=== PATIENT | male | born 1955 | race Caucasian/White ===

== ENCOUNTER 2020-12-03 16:57 | Observation (INO) | payer BC ==
[2020-12-03 17:09] VITALS: BMI 26.2
[2020-12-03] MEDS ORDERED: ATORVASTATIN CA 80 MG TABLET (FP) PO ONE (17:47)
[2020-12-03] MEDS ORDERED: ASPIRIN 81 MG CHEWABLE TABLETS PO ONE (17:47)
[2020-12-03] MEDS ORDERED: ATORVASTATIN CA 80 MG TABLET (FP) ONE ×2 (17:52→18:11)
[2020-12-03] MEDS ORDERED: ASPIRIN 81 MG CHEWABLE TABLETS ONE ×2 (17:52→18:11)
[2020-12-03] MEDS ORDERED: LORazepam 2 MG/ML SDV VIAL ONE (17:55)
[2020-12-03] MEDS ORDERED: ONDANSETRON 4 MG/2 ML VIAL IVPUSH ONE (17:56)
[2020-12-03] MEDS ORDERED: ONDANSETRON 4 MG/2 ML VIAL ONE (17:56)
[2020-12-03] MEDS ORDERED: LORazepam 2 MG/ML SDV VIAL IVPUSH ONE (18:00)
[2020-12-03] MEDS ORDERED: MECLIZINE HCL 25 MG TABLET (FP) ONE (18:01)
[2020-12-03] MEDS ORDERED: MECLIZINE HCL 25 MG TABLET (FP) PO ONE (18:02)
[2020-12-03 18:35] LABS: BASO % 0.5 % (0-2.0); EOS % 4.2 % (0-4.5); HEMATOCRIT 36.5 % (35.4-49); HEMOGLOBIN 11.9 GM/dL (11.7-16.9); LYMPH % 60.3 % (8-40); MCH 29.2 pg (25.7-33.7); MCHC 32.6 g/dl (32.0-35.9); MEAN CELL VOLUME 89.6 fl (80-96); MEAN PLT VOLUME 8.8 fl (7.5-11.1); MONO % 14.6 % (3.8-10.2); NEUT % 20.4 % (42.8-82.8); PLATELET COUNT 204 10^3/uL (134-434); RBC 4.08 M/mm3 (4.00-5.60); RDW 13.6 % (11.9-15.9); WHITE BLOOD COUNT 5.4 K/mm3 (4.0-10.0)
[2020-12-03 18:49] LABS: INR 0.88 (0.83-1.09); PROTHROMBIN TIME (PATIENT) 10.7 SEC (9.7-13.0)
[2020-12-03 18:51] LABS: ACTIVATED PTT 25.2 SECONDS (25.2-36.5)
[2020-12-03 18:55] LABS: CHLORIDE 104 mmol/L (98-107); SODIUM 140 mmol/L (136-145)
[2020-12-03 18:57] LABS: CALCIUM 8.2 mg/dL (8.5-10.1)
[2020-12-03 18:58] LABS: ALBUMIN 3.7 g/dl (3.4-5.0); ANION GAP 11 MMOL/L (8-16); BLOOD UREA NITROGEN 21.1 mg/dL (7-18); CO2 25 mmol/L (21-32); GLUCOSE,RANDOM 134 mg/dL (74-106)
[2020-12-03 19:00] LABS: CHOLESTEROL 181 mg/dL (50-200); TRIGLYCERIDES 82 mg/dL (0-150)
[2020-12-03 19:01] LABS: LDL CHOLESTEROL (ONLY SJRH) 93 mg/dL (5-100); SGOT/AST 24 U/L (15-37); SGPT/ALT 23 U/L (13-61)
[2020-12-03 19:03] LABS: BILIRUBIN,TOTAL 0.5 mg/dL (0.2-1); HDL CHOLESTEROL 70 mg/dL (40-60); TOT PROT 7.6 g/dl (6.4-8.2)
[2020-12-03 19:04] LABS: ALK PHOS 71 U/L (45-117)
[2020-12-03 19:51] LABS: ERYTHROCYTE SEDIMENTATION RATE 10 mm/hr (0-20)
[2020-12-03 20:03] LABS: ANISOCYTOSIS 0; MACROCYTOSIS 0; PLATELET ESTIMATE NORMAL
[2020-12-04 06:01] LABS: HEMATOCRIT 37.8 % (35.4-49); HEMOGLOBIN 12.4 GM/dL (11.7-16.9); MCH 29.9 pg (25.7-33.7); MCHC 32.8 g/dl (32.0-35.9); MEAN CELL VOLUME 90.9 fl (80-96); MEAN PLT VOLUME 8.7 fl (7.5-11.1); PLATELET COUNT 189 10^3/uL (134-434); RBC 4.16 M/mm3 (4.00-5.60); RDW 13.6 % (11.9-15.9); WHITE BLOOD COUNT 7.3 K/mm3 (4.0-10.0)
[2020-12-04 06:21] LABS: MAGNESIUM 2.3 mg/dL (1.8-2.4)
[2020-12-04 06:24] LABS: PHOSPHOROUS 3.5 mg/dL (2.5-4.9)
[2020-12-04 09:33] LABS: PH,URINE 6.5 (5.0-8.0); URINE APPEARANCE CLEAR; URINE BILIRUBIN NEGATIVE (NEGATIVE); URINE COLOR YELLOW; URINE GLUCOSE (UA) NEGATIVE (NEGATIVE); URINE KETONE NEGATIVE (NEGATIVE); URINE LEUK ESTERASE NEGATIVE (NEGATIVE); URINE NITRITE NEGATIVE (NEGATIVE); URINE PROTEIN NEGATIVE (NEGATIVE); URINE UROBILINOGEN 0.2 mg/dL (0.2-1.0)
[2020-12-04 09:34] LABS: EPI CELLS 2.1 /uL (0-25.1); HYALINE CASTS 0 /uL (0-3.1); URINE BACTERIA 20.4 /uL (0-1359); URINE RBC 2.9 /uL (0-23.9); URINE WBC 2.2 /uL (0-25.8)
[2020-12-04 09:53] LABS: BLOOD UREA NITROGEN 17.4 mg/dL (7-18); CALCIUM 8.9 mg/dL (8.5-10.1)
[2020-12-04 09:54] LABS: ALBUMIN 3.7 g/dl (3.4-5.0)
[2020-12-04 09:56] LABS: BILIRUBIN,TOTAL 0.9 mg/dL (0.2-1); TOT PROT 7.5 g/dl (6.4-8.2)
[2020-12-04 09:57] LABS: CREATININE 0.9 mg/dL (0.55-1.3)
[2020-12-04] MEDS ORDERED: HYDROCHLOROTHIAZIDE 25 MG TABLET (FP) PO SCH (10:00)
[2020-12-04] MEDS ORDERED: PATIENT'S OWN MEDICATION (NON-FORMULARY) (Lisinopril/Hydrochlorothiazide [Lisinopril-Hctz PO SCH (10:00)
[2020-12-04] MEDS ORDERED: LISINOPRIL 20 MG TABLET PO SCH (10:00)
[2020-12-04] MEDS ORDERED: METOPROLOL TARTRATE 50 MG TABLET (FP) PO SCH (10:00)
[2020-12-04 10:03] LABS: URINE BARBITURATES NEGATIVE (NEGATIVE)
[2020-12-04 10:04] LABS: COCAINE, UR NEGATIVE (NEGATIVE); METHADONE, UR NEGATIVE (NEGATIVE); OPIATES, URI NEGATIVE (NEGATIVE); PHENCYCLIDINE,URINE NEGATIVE (NEGATIVE); URINE BENZODIAZEPINES NEGATIVE (NEGATIVE)
[2020-12-04 10:23] LABS: URINE AMPHETAMINES NEGATIVE (NEGATIVE)
[2020-12-04 12:04] VITALS: BP 148/89; PULSE 71; TEMP 98
== END 2020-12-04 12:15 | disposition home or self-care (01) ==
LOC: JER 16:57 → INTOOBSV 18:39 → JERBED 18:39 → UNDOADMOB 18:39 → INTOOBSV 21:04 → OBSVTOIN 21:04 → JERBED 21:14
PROVIDERS: ADMIT Internal Medicine; ATTEND Nurse Practitioner Acute Care
PROC: 3E033NZ Introduction of Analgesics, Hypnotics, Sedatives into Peripheral Vein, Percutaneous Approach (ICD-10-PCS; principal; 2020-12-03)
PROC: 3E033GC Introduction of Other Therapeutic Substance into Peripheral Vein, Percutaneous Approach (ICD-10-PCS; 2020-12-03)
DX: H53.8 Other visual disturbances (principal); R53.1 Weakness; R11.2 Nausea with vomiting, unspecified; I10 Essential (primary) hypertension; M10.9 Gout, unspecified; F17.210 Nicotine dependence, cigarettes, uncomplicated; K25.9 Gastric ulcer, unspecified as acute or chronic, without hemorrhage or perforation; E78.49 Other hyperlipidemia
CPT/HCPCS: 36415; 70450-TC; 70496-TC; 70498-TC; 70551-TC; 80053; 80061; 80307; 81003; 82550; 82553; 82962; 83036; 83721; 83735; 84100; 84443; 84484; 85025; 85027; 85610; 85651; 85730; 86850; 86900; 86901; 93005; 93010; 93306-TC; 96374; 96375; 97116-GP; 97161-GP; 99285-25; C9803; G0378; Q9967; U0003; U0005

== ENCOUNTER 2021-09-15 04:25 | Day surgery (SDC) | payer BC ==
[2021-09-10 15:04] VITALS: BMI 26.6
[~2021-09-15 04:25] MED LIST: ACETAMINOPHEN 325 MG TABLET (FP) PO PRN; CYCLOPENTOLATE HCL 1% OPHTH SOLN 2 ML BOTTLE OP SCH; KETOROLAC TROMETHAMINE 0.5% EYE DROP 1 DROP DROPS OP SCH; OFLOXACIN 0.3% OPHTHALMIC SOLUTION 5 ML BOTTLE OP SCH; PHENYLEPHRINE 2.5% OPHTH SOLN 15 ML BOTTLE OP SCH; TROPICAMIDE 1% OPHTH SOLN 15 ML BOTTLE OP SCH
[2021-09-15] MEDS ORDERED: LIDOCAINE HCL/PF 1% SDV 5ML VIAL ONE (07:08)
[2021-09-15] MEDS ORDERED: CHONDROITIN SU A/HYALUR SOD 1 KIT ONE (07:08)
[2021-09-15] MEDS ORDERED: TETRACAINE 0.5% OPHTH SOLN 2 ML BOTTLE ONE (07:17)
[2021-09-15] MEDS ORDERED: POVIDONE-IODINE 5% OPHTHALMIC PREP 30 ML SOLUTION ONE (07:17)
[2021-09-15] MEDS ORDERED: KETOROLAC TROMETHAMINE 0.5% EYE DROP 1 DROP DROPS ONE (08:13)
[2021-09-15] MEDS ORDERED: OFLOXACIN 0.3% OPHTHALMIC SOLUTION 5 ML BOTTLE ONE (08:13)
[2021-09-15] MEDS ORDERED: CYCLOPENTOLATE HCL 1% OPHTH SOLN 2 ML BOTTLE ONE (08:13)
[2021-09-15] MEDS ORDERED: TROPICAMIDE 1% OPHTH SOLN 15 ML BOTTLE ONE (08:13)
[2021-09-15] MEDS ORDERED: PHENYLEPHRINE 2.5% OPTHALMIC DROP BOTTLE ONE (08:14)
[2021-09-15] MEDS ORDERED: OFLOXACIN 0.3% OPHTHALMIC SOLUTION 5 ML BOTTLE OS ONE ×3 (08:30→08:40)
[2021-09-15] MEDS ORDERED: TROPICAMIDE 1% OPHTH SOLN 15 ML BOTTLE OS ONE ×3 (08:30→08:40)
[2021-09-15] MEDS ORDERED: CYCLOPENTOLATE HCL 1% OPHTH SOLN 2 ML BOTTLE OS ONE ×3 (08:30→08:40)
[2021-09-15] MEDS ORDERED: KETOROLAC TROMETHAMINE 0.5% EYE DROP 1 DROP DROPS OS ONE ×3 (08:30→08:40)
[2021-09-15] MEDS ORDERED: PHENYLEPHRINE 2.5% OPHTH SOLN 15 ML BOTTLE OS ONE ×3 (08:30→08:40)
[2021-09-15] MEDS ORDERED: MIDAZOLAM HCL 2 MG/2 ML SINGLE DOSE VIAL ONE (09:45)
[2021-09-15] MEDS ORDERED: TETRACAINE 0.5% OPHTH SOLN 2 ML BOTTLE OS ONE (09:51)
[2021-09-15] MEDS ORDERED: POVIDONE-IODINE 5% OPHTHALMIC PREP 30 ML SOLUTION OS ONE (09:54)
[2021-09-15] MEDS ORDERED: BSS (NA/CA/MG/K) BALANCED SALT SOLUTION OPHTH SOLN 15 ML BOTTLE OS ONE (10:00)
[2021-09-15] MEDS ORDERED: LIDOCAINE HCL 1% PRESERVATIVE FREE - 30ML VIAL IO ONE (10:01)
[2021-09-15] MEDS ORDERED: TRYPAN BLUE 0.5 ML DISP.SYRIN IO ONE (10:02)
[2021-09-15] MEDS ORDERED: CHONDROITIN SU A/HYALUR SOD 1 KIT IO ONE (10:03)
[2021-09-15] MEDS ORDERED: HYALURONATE SODIUM 23 MG/1 ML SYRINGE IO ONE (10:03)
[2021-09-15] MEDS ORDERED: EPINEPHrine/PF 1 MG/1 ML (1:1,000) AMPULE SQ ONE (10:06)
[2021-09-15 12:01] VITALS: BP 128/70; PULSE 58; TEMP 97.8
== END 2021-09-15 11:10 | disposition home or self-care (01) ==
LOC: JASU-SURG 04:25
PROVIDERS: ATTEND Ophthalmology
PROC: 08RK3JZ Replacement of Left Lens with Synthetic Substitute, Percutaneous Approach (ICD-10-PCS; principal; 2021-09-15 10:00)
DX: H26.9 Unspecified cataract (principal)